=== PATIENT | male | born 1975 | race African-American/Black ===

== ENCOUNTER → 2024-07-24 13:24 | Outpatient (BNVA) | payer OTHER, SELFPAY | PROVIDERS: Visit Provider Nurse Practitioner Family ==

== ENCOUNTER 2025-06-11 09:54 | Outpatient (REF) | payer OTHER, SELFPAY ==
--- OUTSIDE RECORDS SUMMARY | 2025-06-11 10:27 | XMS_ITS | Clinical Summary ---
Author Organization [employer] Address [address] [place] [address] Care Team Providers Care Glazing Machine Operator Name Role Phone Name, David BELL Primary Care Provider [phone] Allergies No known active allergies Medications Blood Pressure kit 1 each 2 times daily. 1 kit 4 07/31/20 25 Active SUMAtriptan (Imitrex) 50 MG tablet Take 1 tablet (50 mg) by mouth 1 (one) time if needed for migraine. May repeat dose once in 2 hours if no relief. Do not exceed 2 doses in 24 hours. 9 tablet 4 Active lidocaine (Lidoderm) 5 % patch Apply 1 patch topically Once per day. Remove & discard patch within 12 hours or as directed by MD. May use 2 patches at once. 30 patch 2 4 07/31/20 25 Active acetaminophen (Tylenol) 500 MG tabletIndications: Symptomatic apical periodontitis Take 1 tablet (500 mg) by mouth every 6 (six) hours if needed for mild pain for up to 20 doses. 20 tablet 5 Active metoprolol succinate XL (Toprol-XL) 25 MG 24 hr tabletIndications: Primary hypertension Take 1 tablet (25 mg) by mouth Once per day. Do not crush or chew. 90 tablet 1 5 01/28/20 26 Active naproxen (Naprosyn) 250 MG tabletIndications: Chronic bilateral low back pain with right-sided sciatica Take 1 tablet (250 mg) by mouth if needed in the morning and at bedtime for mild pain. Prn pain and/or fever 45 tablet 5 01/28/20 26 Active amLODIPine (Norvasc) 2.5 MG tablet Take 1 tablet (2.5 mg) by mouth Once per day. 30 tablet 3 5 06/11/20 26 Active Active Problems Problem Noted Date Diagnosed Date Symptomatic apical periodontitis 11/12/2024 HTN (hypertension) 07/31/2024 Chronic bilateral low back pain without sciatica 07/31/2024 Migraine with aura and witho ut status migrainosus, not intractable 07/31/2024 H/O lumbosacral spine surgery 07/31/2024 Encounters Date Type Department Care Team Description 06/11/2025 9:00 AM EDT Office Visit [facility] [address], [place] [phone] David Pavon MD Hypertension, unspecified type (Primary Dx); Screening for cholesterol level; Screening for diabetes mellitus; Encounter for immunization 06/11/2025 Travel 06/04/2025 Patient Outreach [facility] [address] [place], [place] [phone] David Pavon MD from Last 3 Months Immunizations Immunization Administration Dates Next Due Influenza, IIV3, injectable 11/15/2024 Tdap 06/11/2025 Zoster, Recombinant 03/04/2025,11/15/2024 Family History Medical History Relation Name Comments Benign prostatic hyperplasia Brother Diabetes Father Diabetes Mother No Known Problems Sister Relation Name Status Comments Brother Alive Father Mother Alive Sister Social History Tobacco Use Types Packs/Day Years Used Date Smoking Tobacco: Never Smokeless Tobacco: Never Tobacco Cessation:Counseling Given: Not Answered Alcohol Use Standard Drinks/Week Comments Never 0 (1 standard drink = 0.6 oz pur e alcohol) Depression Answer Date Recorded Patient Health Questionnaire-9 Score 3 06/11/2025 Patient Health Questionnaire-9 Score 3 06/11/2025 Last PHQ-9: Questionnaire Data Not on file 0 06/11/2025 Housing Stability Answer Date Recorded What is your housing situation today? I have guillermo sher 06/11/[address] you li ve. Do you have problems with any of the following? None of the above 06/11/2025 Food Insecurity Answer Date Recorded Within the past 12 months, y ou worried that your food would run out before you got money to buy more: Never True 06/11/2025 Within the past 12 months,th e food you bought just didn't last and you didn't have enough money to get more: Never True 04/2025 Transportation Answer Date Recorded In the past 12 months, has l ack of transportation kept you from medical appts, meetings, work or from getting things needed for daily living? No 06/11/2025 Utilities Answer Date Recorded In the past 12 months, has t he electric, gas, oil or water company threatened to shut off services in your home? 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, Storage, [employer] Distribution Managers Not on file Not on file Not on file Last Filed Vital Signs Vital Sign Reading Time Taken Comments Blood Pressure 172/74 06/11/2025 8:57 AM EDT Pulse 53 06/11/2025 8:57 AM EDT Temperature 36.1 C (97 F) 06/11/2025 8:57 AM EDT Respiratory Rate 12 06/11/2025 8:57 AM EDT Oxygen Saturation 99% 06/11/2025 8:57 AM EDT Inhaled Oxygen Concentration - - Weight 92.6 kg (204 lb 3.2 oz) 06/11/2025 8:57 A M EDT Height 180.3 cm (5' 11 ) 06/11/2025 8:57 AM EDT Body Mass Index 28.48 06/11/2025 8:57 AM EDT Plan of Treatment Upcoming Encounters Date Type Department Care Team (Late st Contact Info) Description 06/18/2025 9:30 AM EDT Telemedicine [facility] [address] [place] [id number] 09/04/2025 9:45 AM EDT Office Visit [facility] [address] [facility] [place] [address] Name, MD David [address] [facility] [place] [address] Health Maintenance Due Date Last Done Comments CT Colonography 1973 Colonoscopy 1973 Colorectal Cancer Screening 1973 Dental Oral Exam 1973 Dental Prophylaxis 1973 Dental X-Ray: Bitewings 1973 FIT DNA/Cologuard 1973 FIT 1973 FOBT 1973 HIV Screening 1973 Lipid Panel 1973 Sigmoidoscopy 1973 Family Planning (PISQ) 1988 Hepatitis C Screening 1991 Hepatitis B Vaccines (1 of 3 - 19+ 3-dose series) 1992 Pneumococcal Vaccine: 50+ Years (1 of 1 - PCV) 2023 COVID-19 Vaccine ( - 2023-2 5 season) 2024 Influenza Vaccine (#1) 2025 11/15/2024 Alcohol/Substance Use Screening 06/11/2026 06/11/2025 Depression Screening 06/11/2026 06/11/2025, 06/11/2025 Disability Screening 06/11/2026 06/11/2025 SDOH Screening 06/11/2026 06/11/2025 Tobacco Screening 06/11/2026 06/11/2025 Dental X-Ray: Full Mouth 11/13/2027 11/12/2024 DTaP/Tdap/Td Vaccines (2 - T d or Tdap) 06/11/2035 06/11/2025 RSV Patients and Patients Aged 60 years or older (1 - 1-dose 75+ series) 2048 Zoster Vaccines Completed 03/04/2025, 11/15/2024 HIB Vaccines Aged Out No longer eligi ble based on patient's age to complete this topic HPV Vaccines Aged Out No longer eligi ble based on patient's age to complete this topic Hepatitis A Vaccines Aged Out No long er eligible based on patient's age to complete this topic IPV Vaccines Aged Out No longer eligi ble based on patient's age to complete this topic Meningococcal B Vaccine Aged Out No l onger eligible based on patient's age to complete this topic Meningococcal Vaccine Aged Out No paige zachary eligible based on patient's age to complete this topic RSV under 20 months Aged Out No longe r eligible based on patient's age to complete this topic Rotavirus Vaccines Aged Out No longer eligible based on patient's age to complete this topic Procedures Procedure Name Priority Date/Time Associated Diagnosis Comments ECG 12-LEAD Routine 06/11/2025 9:41 AM EDT Hypertension, unspecified type PANORAMIC RADIOGRAPHIC IMAGE Routine 11/12/2024 1:00 PM EST from Last 3 Months or Most Recently Relevant to Health Maintenance Results * ECG 12 lead (06/11/2025 9:41 AM EDT) Narrative Name, MD David - 06/11/2025 9:41 AM EDT Sinus bradycardia. Heart rate of 47. no ST segment elevation or depression. Nonspecific T wave flattening. Possible LVH. David Pavon MD ECG ORDERABLES Final Result from Last 3 Months Insurance [facility] C3 Care Teams Glazing Machine Operator Relationship Specialty Start Date End Date Name, MD David [address] [place] [id number] PCP - General Internal Medicine 06/11/25
[2025-06-11 11:56] LABS: Alanine Aminotransferase 40 U/L (0-40); Albumin Level 4.7 g/dL (3.5-5.0); Alkaline Phosphatase 74 U/L (39-117); Anion Gap 10 (12-20); Aspartate Amino Transferase 34 U/L (5-37); Blood Urea Nitrogen 19 mg/dL (9-16); Calcium 9.1 mg/dL (8.4-10.2); Carbon Dioxide 30 mmol/L (22-29); Chloride 106 mmol/L (96-108); Cholesterol 233 mg/dL (<200); Estimated Glomerular Filt Rate > 60; HDL Cholesterol 60 mg/dL (>40); Potassium 4.2 mmol/L (3.3-5.1); Sodium 142 mmol/L (135-145); Total Protein 7.6 g/dL (6.5-8.0); Triglycerides 95 mg/dL (<150)
[2025-06-11 12:28] LABS: Microalbum/Creatinine Ratio Ur 4.1 ug/mg cr (<30)
== END 2025-06-11 09:55 | disposition home or self-care (01) ==
LOC: HO.HHCL 09:54
PROVIDERS: Nurse Practitioner Primary Care; PCP Internal Medicine Geriatric Medicine; Visit Provider Internal Medicine Geriatric Medicine
DX: Z13.220 Encounter for screening for lipoid disorders (principal); I10 Essential (primary) hypertension
CPT/HCPCS: 36415; 80048; 80061; 80076; 82043; 82570

== ENCOUNTER 2025-07-08 19:51 | Emergency (ER) | payer OTHER, SELFPAY ==
--- NOTE | ~2025-07-08 | CT_ITS ---
CLINICAL HISTORY: elevated BPs headache CT head without contrast Comparison: None provided Findings: No intra-axial mass, midline shift, hydrocephalus, or acute hemorrhage. No significant atrophy-like change or white matter disease. Minimal mucosal thickening maxillary sinuses. The orbits are unremarkable. Chronic fracture of the right lamina papyracea. IMPRESSION: 1. No acute intracranial findings. This document has been electronically signed by: Guadalupe Anderson MD on 07/08/2025 21:49:15
--- NOTE | ~2025-07-08 | XR_ITS ---
CLINICAL HISTORY: low back pain s p surgery 3 views lumbar spine Comparison: None provided Findings: Normal vertebral body alignment. Posterior fusion with intervertebral disc spacer at L5-S1. No hardware complications. Mild disc space narrowing at L1-L2. No acute fracture or dislocation. IMPRESSION: 1. Status post L5-S1 posterior fusion with intervertebral disc spacer, without hardware complications. 2. No acute findings. This document has been electronically signed by: Guadalupe Anderson MD on 07/08/2025 20:44:27
[2025-07-08 19:56] VITALS: BP 173/86; PULSE 70; RESP 18; TEMP 36.7; O2SAT 98; BMI 28.1
--- NOTE | 2025-07-08 19:56 | ED.GENADULT ---
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 Alicia Miller HPI narrative: 48-year-old male with history of hypertension, migraines, chronic back pain status post lumbar spine instrumentation several years ago presenting with global headache that is been ongoing for the last 2 days. Patient reports that he began having headache and then developed high blood pressure which concerned him. He has been taking his blood pressure medications as prescribed but reports no improvement in his blood pressure. Came to the emergency department because he was concerned about hypertension. Denies associated neck stiffness, fever, chest pain, difficulty breathing, abdominal pain, nausea, vomiting, diarrhea, loss of bowel or bladder control, changes in his chronic lower extremity pain, new weakness, known sick contacts or travel. No relief with ibuprofen. Related Data Home Medications ?Medication ?Instructions ?Recorded ?Confirmed sumatriptan succinate 50 mg tablet mg PO 07/23/24 07/23/24 Allergies Allergy/AdvReac Type Severity Reaction Status Date / Time No Known Allergies Allergy Verified 07/08/25 20:04 Review of Systems Review of Systems: as per HPI, full review of systems performed and negative but for the above mentioned pertinent positives and negatives. REPLACED BY [facility] Social History Social History Advance Directives: No Advance Directives Information Provided: No Physical Exam ED Exam Exam: GENERAL: Ill-Appearing, appears uncomfortable. SKIN: Normal skin color for ethnicity, warm, dry, no rashes noted. HEENT:? Normocephalic, atraumatic, no stridor, dry mucous membranes, dentition intact, EOMI. NECK: Soft, supple, full ROM, midline structures nontender, no step-offs, no deformities, no lymphadenopathy. CHEST: Heart regular rhythm, no murmurs, symmetric chest rise and fall. PULMONARY: Clear to auscultation bilaterally, diminished at the bases, no labored breathing, no wheezes/rhales/rhonchi. ABDOMINAL: Soft, nondistended, nontender, positive bowel sounds in all quadrants. : Deferred. MUSCULOSKELETAL: Normal tone, full range of motion, no deformities, no peripheral edema. NEURO: Alert and oriented x3, CN II through XII intact, equal strength and sensation bilateral upper and lower extremities, no focal neurologic deficits.? PSYCHIATRIC: Flat affect, fluid speech, good eye contact and appropriate demeanor. Vital Signs: Vital Signs - 24 hr 07/09/25 00:52 Temperature 98.1 F Pulse Rate 70 Respiratory Rate 15 Blood Pressure 149/81 H Pulse Oximetry 100 Oxygen Delivery Method Room Air BMI result Body Mass Index 28.1 Course Course Course Narrative: This is a Rapid Medical Examination (RME) performed by Alivia Oliver PA-C in triage. Full HPI, ROS, assessment and treatment plan per primary provider in the Main ED. Hx: 50 yo M here for eval of elevated BP readings x few days, headache, back pain, and right leg pain yesterday. compliant w/ amlodipine. PE/vitals: hypertensive Plan: labs, ekg, ct Medications Administered Discontinued Medications Generic Name Dose Route Start Last Admin Trade Name Freq PRN Reason Stop Dose Admin Sumatriptan Succinate 50 mg 07/09/25 00:16 07/09/25 00:48 Sumatriptan Succinate 50 Mg Tablet PO 07/09/25 00:17 50 mg ONCE ONE Administration Medical Decision Making Medical Decision Making [facility] Narrative: Patient presenting with chief complaint of high blood pressure, headaches. Differential diagnosis includes hypertensive urgency, hypertensive emergency, essential hypertension, uncontrolled hypertension, ACS, aortic dissection when accompanied with pain or neurologic dysfunction, renal insufficiency or injury, electrolyte abnormality, among many others. Todays workup is reassuring. His exam is benign. He is concerned about HTN in the setting of migraine headaches but is not treating his pain appropriately. 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 After extensive discussion with both him and his regarding importance of medication compliance, use of pain medications for headache and the pathophysiology of HTN associated with pain, decision was made for pain control and outpatient follow up. His BP improved without meds here in the ED and headache resolved with sumatriptan here in the ED. Differential Diagnosis Differential Diagnoses: The differential diagnosis associated with the presentation includes (as above) Admission/Observation Consideration of admission/observation: Escalation of care including admission/observation considered Lab Data [facility] Lab Attestation statement: I reviewed the patient's lab results. 07/08/25 20:29 07/08/25 20:29 Labs: Lab Results 07/08/25 Range/Units 20:29 WBC 4.1 L (4.8-10.8) X10*3/uL RBC 5.10 (4.60-5.80) X10*6/uL Hgb 14.3 (14.0-18.0) g/dl Hct 42.3 (42.0-52.0) % MCV 82.9 (80.0-98.0) fL MCH 28.0 (27.0-33.0) pg MCHC 33.8 (31.0-36.0) g/dl RDW 13.0 (11.0-16.0) % Plt Count 224 (160-400) X10*3/uL MPV 10.4 (9.4-12.4) fL Immature Gran % (Auto) 0.2 (0.0-0.4) % Neut % (Auto) 45.0 (45-73) % Lymph % (Auto) 44.2 H (20-40) % [place] % (Auto) 7.2 (2-11) % Eos % (Auto) 2.7 (0-4) % Baso % (Auto) 0.7 (0-2) % Lymph # (Auto) 1.8 (1.2-4.9) X10*3/uL [place] # (Auto) 0.3 (0.1-1.2) X10*3/uL Eos # (Auto) 0.1 (0.0-0.4) X10*3/uL Baso # (Auto) 0.0 (0.0-0.2) X10*3/uL Abs Immat Gran (auto) 0.01 (0.00-0.03) X10*3/uL Absolute Neuts (auto) 1.8 L (2.0-8.3) x10*3/uL Absolute Nucleated RBC 0.000 (0.0-0.012) X10*3/uL Nucleated RBC % (auto) 0.0 (0.0-0.2) /100WBC Sodium 141 (135-145) mmol/L Potassium 3.8 (3.3-5.1) mmol/L Chloride 108 (96-108) mmol/L Carbon Dioxide 25 (22-29) mmol/L Anion Gap 12 (12-20) BUN 15 (9-16) mg/dL Creatinine 1.41 H (0.5-1.4) mg/dL Estim Creat Clear Calc 70.8 Estimated GFR 53 Random Glucose 145 H (60-115) mg/dL Calcium 8.7 (8.4-10.2) mg/dL Magnesium 2.0 (1.6-2.6) mg/dL Total Bilirubin 1.1 H (0.0-1.0) mg/dL AST 16 (5-37) U/L ALT 33 (0-40) U/L Alkaline Phosphatase 73 (39-117) U/L Troponin I High Sens < 2.7 (<3.5-35.0) ng/L Total Protein 7.2 (6.5-8.0) g/dL Albumin 4.4 (3.5-5.0) g/dL Independent Interpretation I performed an independent interpretation of an: EKG Radiology Impression Discussion of test interpretation with radiology: I have reviewed the radiologist's reading. Independent Historian Clinical information obtained from an independent historian. History obtained from or confirmed by: Spouse External Record Review External record reviewed: Outpatient record Prescription Management I considered prescription management with: Pain Medication Chronic Conditions Patient?s care impacted by: Hypertension Discharge Plan Discharge Clinical Impression: Migraine, Episode of hypertension Patient Disposition: Home, Self-Care Additional Instructions: Contin?e tomando barb medicamentos para la presi?n arterial seg?n lo recetado. Use sumatript?n para las migra?as. Tambi?n puede complementarlo con ibuprofeno. Regrese a urgencias ante cualquier s?ntoma nuevo o que empeore, incluyendo: fiebre superior a 38?C, empeoramiento del dolor de jordi a pesar de la medicaci?n, rigidez de nuca, incapacidad para tolerar alimentos o bebidas, o cualquier s?ntoma nuevo que le preocupe. Llame al 911 ante cualquier emergencia m?dica. Continue taking your blood pressure medications as prescribed. Use sumatriptan for migraine headaches. You may also supplement with ibuprofen. Return to the emergency room with any new or worsening symptoms including: Fevers greater than 100?, worsening headaches despite medications, stiff neck, inability to tolerate food or drink, any new symptom that concerns you. Call 911 with any medical emergency. Prescriptions: No Action sumatriptan succinate 50 mg tablet PO Interventions: ED Discharge Assessment Last Done: 07/09/25 00:52 Discharge Date/Time: 07/09/25 00:52 Print Language: Hungarian
--- NOTE | 2025-07-08 20:02 | ECG_ITS ---
Test Reason : HYPERTENSION Blood Pressure : */* mmHG Vent. Rate : 71 BPM Atrial Rate : 71 BPM P-R Int : 152 ms QRS Dur : 74 ms QT Int : 376 ms P-R-T Axes : 40 -21 -4 degrees QTcB Int : 408 ms Normal sinus rhythm Nonspecific T wave abnormality Abnormal ECG No previous ECGs available Referred By: Linda Oliver Electronically Signed By: Andrae Lange
--- OUTSIDE RECORDS SUMMARY | 2025-07-08 20:21 | XMS_ITS | Clinical Summary ---
Author Organization [employer] Address [address] [facility] [address] [place] [address] Care Team Providers Care Animator Name Role Phone Name, David BELL Primary Care Provider [phone] Allergies No known active allergies Medications Blood [...] Encounters Date Type Department Care Team Description 06/23/2025 Results Follow-Up [facility] [address] [place] [phone] Maddie Chino ANP Albumin, Random Urine W/Creatinine, Basic Metabolic Panel 06/18/2025 Telephone [facility] [address] [place] [phone] David Pavon MD 06/11/2025 9:00 AM EDT Office Visit [facility] [address] [place] [phone] David Pavon MD Hypertension, unspecified type (Primary Dx); Screening for cholesterol level; Screening for diabetes mellitus; Encounter for immunization 06/11/2025 Travel 06/04/2025 Patient Outreach [facility] [address] [place], [place] [phone] David Pavon MD from Last 3 Months [...] Care Team (Late st Contact Info) Description 09/04/2025 9:45 AM EDT Office Visit [facility] [address] [place] [address] Name, MD David [address] [place] [address] Health Maintenance Due Date Last Done Comments CT Colonography 1973 Colonoscopy 1973 Colorectal Cancer Screening 1973 Dental Oral Exam 1973 Dental Prophylaxis 1973 Dental X-Ray: Bitewings 1973 FIT DNA/Cologuard 1973 FIT 1973 FOBT 1973 HIV Screening 1973 Sigmoidoscopy 1973 Family Planning (PISQ) 1988 Hepatitis C Screening 1991 Hepatitis B Vaccines (1 of 3 - 19+ 3-dose series) 1992 Pneumococcal Vaccine: 50+ Years (1 of 1 - PCV) 2023 COVID-19 Vaccine ( - 2023-2 5 season) 2025 Influenza Vaccine (#1) 2025 11/15/2024 Alcohol/Substance Use Screening 06/11/2026 06/11/2025 Depression Screening 06/11/2026 06/11/2025, 06/11/2025 Disability Screening 06/11/2026 06/11/2025 SDOH Screening 06/11/2026 06/11/2025 Tobacco Screening 06/11/2026 06/11/2025 Dental X-Ray: Full Mouth 11/13/2027 11/12/2024 Lipid Panel 06/11/2030 06/11/2025 DTaP/Tdap/Td Vaccines (2 - T d or [...] this topic Meningococcal Vaccine Aged Out No pagie zachary eligible based on patient's age to complete this topic RSV under 20 months Aged Out No longe r eligible based on patient's age to complete this topic Rotavirus Vaccines Aged Out No longer eligible based on patient's age to complete this topic Procedures Procedure Name Priority Date/Time Associated Diagnosis Comments LIPID PANEL, STANDARD Routine 06/11/2025 10:00 AM EDT Screening for cholesterol level HEPATIC FUNCTION PANEL Routine 06/11/2025 10:00 AM EDT Screening for cholesterol level BASIC METABOLIC PANEL Routine 06/11/2025 10:00 AM EDT Primary hypertension ALBUMIN, RANDOM URINE W/CREATININE Routine 06/11/2025 10:00 AM EDT Primary hypertension ECG 12-LEAD Routine 06/11/2025 9:41 AM EDT Hypertension, unspecified type PANORAMIC RADIOGRAPHIC IMAGE Routine 11/12/2024 1:00 PM EST from Last 3 Months or Most Recently Relevant to Health Maintenance Results * Albumin, Random Urine W/Creatinine (06/11/2025 10:00 AM EDT) Creatinine, Urine 169.59 mg/dL [facility] Microalbumin Urine 7.0 mg/L [facility] Microalbum Creatinine Ratio Ur 4.1 <30 ug/mg cr [facility] Comment:Albumin/Creatinine R atio Reference Ranges: Normal: < 30 ug/mg creatinine Microalbuminuria: 30 - 300 ug/mg creatinineClinical Albuminuria: > 300 ug/mg creatinine Urine 06/11/2025 10:0 0 AM EDT 06/11/2025 11:25 AM EDT us Maddie TOBIN LAB URINE ORDERABLES Final Resul t Performing Organization Address [facility] Co de Phone Number [facility] [address] [place] [phone] * (ABNORMAL) Hepatic Function Panel (06/11/2025 10:00 AM EDT) Bilirubin, Total 1.6(H) 0.0 - 1.0 mg/dL [facility] Bilirubin, Direct 0.4 0.0 - 0.5 mg/dL [facility] Aspartate Amino Transferase 34 5 - 37 U/L [facility] Alanine Aminotransferase 40 0 - 40 U/L [facility] Total Protein 7.6 6.5 - 8.0 g/dL [facility] Albumin Level 4.7 3.5 - 5.0 g/dL [facility] Alkaline Phosphatase 74 39 - 117 U/L [facility] Blood Venous blood specimen / Unknown 06/11/2025 10:00 AM EDT 06/11/2025 11:14 AM EDT us David Pavon MD LAB BLOOD ORDERABLES Final Resul t Performing Organization Address [facility] Phone Number [facility] [address] [place] [phone] * (ABNORMAL) Lipid Panel, Standard (06/11/2025 10:00 AM EDT) Triglycerides 95 <150 mg/dL [facility] Comment:Desirable Triglyceri de: less than 150 mg/dLBorderline High Triglyceride 150-199 mg/dLHigh Triglyceride: 200-499 mg/dLVery High Triglyceride: greater than or equal to 5OO mg/dL Cholesterol 233(H) <200 mg/dL [facility] Comment:Desirable Cholestero l: less than 200 mg/dLBorderline High Cholesterol: 200-239 mg/dLHigh Cholesterol: greater than 239 mg/dL LDL Cholesterol Calculated 154(H) <100 mg/dL [facility] Comment:Desirable LDL: less than 100 mg/dLNear Optimal/Above Optimal LDL: 110- 129 mg/dLBorderline High LDL: 130-159 mg/dLHigh LDL: 160-189 mg/dLVery High LDL: greater than or equal to 190 mg/dL HDL Cholesterol 60 >40 mg/dL [facility] Comment:Desirable HDL: great er than 40 mg/dL Note: This HDL assay may give artificially low results in patients with liver disease. Blood Venous blood specimen / Unknown 06/11/2025 10:00 AM EDT 06/11/2025 11:14 AM EDT us David Pavon MD LAB BLOOD ORDERABLES Final Resul t [facility] [address] [place] [phone] * (ABNORMAL) Basic Metabolic Panel (06/11/2025 10:00 AM EDT) Sodium 142 135 - 145 mmol/L [facility] Potassium 4.2 3.3 - 5.1 mmol/L [facility] Chloride 106 96 - 108 mmol/L [facility] Carbon Dioxide 30(H) 22 - 29 mmol/L [facility] Anion Gap 10(L) 12 - 20 [facility] Urea Nitrogen (BUN) 19(H) 9 - 16 mg/dL [facility] Creatinine, Serum 1.26 0.5 - 1.4 mg/dL [facility] Estimated Glomerular Filt Rate >60 [facility] Comment:Chronic Kidney Disea se: Estimated GFR < 60 mL/min/[id number] Kidney Disease: Estimated GFR < 15 mL/min/1.73m2 Glucose 103 60 - 115 mg/dL [facility] Calcium 9.1 8.4 - 10.2 mg/dL [facility] Blood Venous blood specimen / Unknown 06/11/2025 10:00 AM EDT 06/11/2025 11:14 AM EDT us Maddie Chino ANP LAB BLOOD ORDERABLES Final Resul t [facility] [address] [place] [phone] * ECG 12 lead (06/11/2025 9:41 AM EDT) Narrative Name, MD David - 06/11/2025 9:41 AM EDT Sinus bradycardia. Heart rate of 47. no ST segment elevation or depression. Nonspecific T wave flattening. Possible LVH. David Pavon MD ECG ORDERABLES Final Result from Last 3 Months Insurance [facility] C3 Care Teams Animator Relationship Specialty Start Date End Date Name, MD David [address] [place] [phone] PCP - General Internal Medicine 06/11/25
[2025-07-08 20:34] LABS: MANUAL DIFF FLAG NO
[2025-07-08 20:35] LABS: Hematocrit 42.3 % (42.0-52.0); Hemoglobin 14.3 g/dl (14.0-18.0); Imm Gran Abs Auto 0.01 X10*3/uL (0.00-0.03); Imm Gran Pct Auto 0.2 % (0.0-0.4); Lymphocytes Absolute Auto 1.8 X10*3/uL (1.2-4.9); Mean Corpuscular HGB Conc 33.8 g/dl (31.0-36.0); Mean Corpuscular Hemoglobin 28.0 pg (27.0-33.0); Mean Corpuscular Volume 82.9 fL (80.0-98.0); NRBC Abs Auto 0.000 X10*3/uL (0.0-0.012); NRBC Pct Auto 0.0 /100WBC (0.0-0.2); Platelet Count 224 X10*3/uL (160-400); Red Blood Count 5.10 X10*6/uL (4.60-5.80); White Blood Count 4.1 X10*3/uL (4.8-10.8)
[2025-07-08 20:47] LABS: Alanine Aminotransferase 33 U/L (0-40); Albumin Level 4.4 g/dL (3.5-5.0); Alkaline Phosphatase 73 U/L (39-117); Anion Gap 12 (12-20); Aspartate Amino Transferase 16 U/L (5-37); Blood Urea Nitrogen 15 mg/dL (9-16); Calcium 8.7 mg/dL (8.4-10.2); Carbon Dioxide 25 mmol/L (22-29); Chloride 108 mmol/L (96-108); Creatinine Clr Calc Pharmacy 70.8; Estimated Glomerular Filt Rate 53; Magnesium 2.0 mg/dL (1.6-2.6); Potassium 3.8 mmol/L (3.3-5.1); Sodium 141 mmol/L (135-145); Total Protein 7.2 g/dL (6.5-8.0)
[2025-07-08 20:56] LABS: Troponin-I High Sensitivity < 2.7 ng/L (<3.5-35.0)
[2025-07-08 21:42] VITALS: BP 149/81; RESP 15; TEMP 36.7; O2SAT 100
[2025-07-09 00:52] VITALS: BP 149/81; PULSE 70; RESP 15; TEMP 36.7; O2SAT 100
== END 2025-07-09 00:52 | disposition home or self-care (01) ==
PROVIDERS: Physician Assistant Medical; Emergency Provider Emergency Medicine; PCP Internal Medicine Geriatric Medicine
DX: G43.909 Migraine, unspecified, not intractable, without status migrainosus (principal); M54.50 Low back pain, unspecified; I10 Essential (primary) hypertension
CPT/HCPCS: 36415; 70450; 72100; 80053; 83735; 84484; 85025; 93005; 99284

== ENCOUNTER → 2025-07-08 20:02 | Outpatient (BNV) | payer OTHER, SELFPAY | PROVIDERS: Emergency Provider Emergency Medicine; PCP Internal Medicine Geriatric Medicine; Visit Provider Internal Medicine Cardiovascular Disease | DX: R94.31 Abnormal electrocardiogram [ECG] [EKG] (principal); I10 Essential (primary) hypertension | CPT/HCPCS: 93010 ==

== ENCOUNTER → 2025-07-08 20:02 | Outpatient (BNV) | payer OTHER, SELFPAY | PROVIDERS: PCP Internal Medicine Geriatric Medicine; Visit Provider Radiology Diagnostic Radiology | DX: R51.9 Headache, unspecified (principal); M54.50 Low back pain, unspecified | CPT/HCPCS: 70450; 72100 ==